=== PATIENT | male | born 1960 | race Caucasian/White ===

== ENCOUNTER 2019-06-29 13:20 | Outpatient (CLI) | payer OTHER ==
--- NOTE | 2019-06-29 13:39 | RAD ---
EXAM: Chest 2 views: HISTORY: Persistent cough COMPARISON: None. FINDINGS: There is a normal-sized cardiomediastinal silhouette. There is no evidence of consolidation, mass, or pleural effusion. The bones are unremarkable. IMPRESSION: No evidence of acute cardiopulmonary disease
== END 2019-06-29 13:21 | disposition home or self-care (01) ==
LOC: MADRAD 13:20
PROVIDERS: ATTEND Family Medicine
DX: R05 Cough (principal)
CPT/HCPCS: 71046

== ENCOUNTER 2020-01-24 14:17 | Outpatient (CLI) | payer OTHER ==
--- NOTE | 2020-01-24 14:50 | RAD ---
RIGHT KNEE FOUR VIEWS: 01/24/20 HISTORY: Arthralgia of right knee. FINDINGS/IMPRESSION: No acute fracture or dislocation is seen. There is a well corticated bony density in the joint space suspicious for loose body. There is fullness in the suprapatellar pouch, likely due to joint effusio n. POS: [facility]
== END 2020-01-24 14:18 | disposition home or self-care (01) ==
LOC: MADRAD 14:17
PROVIDERS: ATTEND Family Medicine
DX: M25.561 Pain in right knee (principal); R93.7 Abnormal findings on diagnostic imaging of other parts of musculoskeletal system